=== PATIENT | male | born 1930 | race Caucasian/White ===

== ENCOUNTER 2017-10-25 06:51 | Emergency (ER) | payer MEDICARE ==
[~2017-10-25] VITALS: Ht 167.6 cm; Wt 72.1 kg
[~2017-10-25 06:51] MED LIST: ASPIRIN LOW DOS81 MG PO; CALCIUM500 M3 PO; CLINDAMYCIN HC150 MG; COQ-10100 MG PO; PANTOPRAZOLE SO40 MG PO; VITAMIN C100 MG PO; VITAMIN D31000 UNI1 PO; VITAMIN E200 UNI5 PO; Z GARLIC PO; Z.0.COQ-10100 MG PO; Z.0.DIOVAN160 MG PO; Z.0.SYNTHROID75 MCG PO; [UNRECOGNIZED DRUG - OTHER]; [UNRECOGNIZED DRUG - OTHER]; [UNRECOGNIZED DRUG - OTHER] PO; [UNRECOGNIZED DRUG - OTHER] PO; [UNRECOGNIZED DRUG - OTHER] PO; [UNRECOGNIZED DRUG - OTHER] PO
[2017-10-25] MEDS ORDERED: ARTIFICIAL TEAR15 ML OP (07:49)
== END 2017-10-25 08:23 | disposition home or self-care (01) ==
LOC: FSED 06:51
DX: T15.92XA Foreign body on external eye, part unspecified, left eye, initial encounter (principal); S05.8X2A Other injuries of left eye and orbit, initial encounter; I10 Essential (primary) hypertension; I25.10 Atherosclerotic heart disease of native coronary artery without angina pectoris; E03.9 Hypothyroidism, unspecified
CPT/HCPCS: 99283

== ENCOUNTER 2017-12-24 09:21 | Emergency (ER) | payer MEDICARE ==
[~2017-12-24] VITALS: Ht 167.6 cm; Wt 68.0 kg
[~2017-12-24 09:21] MED LIST changes: +ARTIFICIAL TEAR15 ML OP
--- OUTSIDE RECORDS SUMMARY | 2017-12-24 09:25 | XMS REPORT | Continuity of Care Document ---
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 Yes 04/17/16 12:16pm If yes, is advance directive on file with [facility]? No 11/30/15 12:51pm If not on file with [facility] will patient provide a copy? Yes 04/17/16 12:16pm Do you have a Directive to Physician? No 10/25/17 7:19am Do you have a Medical Power of Certified Ophthalmic Surgical Assistant? Yes 10/25/17 7:19am Do you have an out of hospital Do Not Resuscitate Order? No 10/25/17 7:19am Do you have any special needs we should be aware of? No 10/25/17 7:19am Do you have a support person here with you today? Yes 10/25/17 7:19am Did patient receive Notice of Privacy Practices? Yes 10/25/17 7:19am Did patient receive patient rights and responsibilities? Yes 10/25/17 7:19am Problems Medical Problem Onset Date Status Chest pain 11/30/2015 Acute Medications Current Home Medications Medication Dose Units Route Directions Days Qty Instructions Start Date Ascorbic Acid (Vitamin C) 100 Mg Tablet 100 Mg Oral Daily Ascorbic Acid/Bioflavonoids (Vit C-Bioflavonoids Tab Sa) 1 Each Tablet.sa 1 Each Oral Aspirin (Aspirin Low Dose) 81 Mg Tablet.dr 81 Mg Oral Daily Calcium Carbonate (Calcium) 500 Mg Tablet 250 Mg Oral Daily 0.5 Cholecalciferol (Vitamin D3) (Vitamin D3) 1,000 Unit Tablet 2,000 Intlu Oral Daily Clindamycin Hcl 150 Mg Capsule Dextran 70/Hypromellose (Artificial Tears Eye Drops) 15 Ml Drops 15 Ml Ophthalmic Every 4 Hours as needed for Dryness/Irritation 1 Bottle 01/06 Garlic 1 Each Capsule 1 Each Oral Glucosmine Daily Levothyroxine Sodium (Synthroid) 75 Mcg Tablet 75 Mcg Oral Daily Pantoprazole Sodium (Protonix) 40 Mg Tablet.dr 40 Mg Oral Daily Red Yeast Rice 600 Mg Tablet Daily Ubidecarenone (Coq-10) 100 Mg Capsule 100 Mg Oral Daily Valsartan (Diovan) 160 Mg Tablet 160 Mg Oral Daily Vit D3 & K/Berberine Hcl/Hops (Ostera Tablet) 1 Each Tablet 1 Each Oral Vitamin E (Dl,Tocopheryl Acet) (Vitamin E) 200 Unit Capsule 200 Intlu Oral Daily Past Home Medications Medication Directions Ordered Status Ubidecarenone (Coq-10) 100 Mg Capsule, 100 Mg Oral Discontinued Vit B12/Lm-Folate Ca/Vit B6/B2 (Cerefolin Tablet) 1 Each Tablet, 1 Each Oral Daily Discontinued Vitamin A 8,000 Unit Capsule, 8000 Unit Oral Daily Discontinued Social History Social History Problem Response Recorded Date/Time Onset Date Status Hx Psychiatric Problems No 11/30/2015 12:51pm Not Applicable Not Applicable Hx Eating Disorder No 11/30/2015 12:51pm Not Applicable Not Applicable Hx Substance Use Disorder No 11/30/2015 12:51pm Not Applicable Not Applicable Hx Depression No 11/30/2015 12:51pm Not Applicable Not Applicable Hx Alcohol Use No 11/30/2015 12:51pm Not Applicable Not Applicable Hx Substance Use Treatment No 11/30/2015 12:51pm Not Applicable Not Applicable Hx Physical Abuse No 11/30/2015 12:51pm Not Applicable Not Applicable Hospital Discharge Instructions No hospital discharge instruction information available. Plan of Care Discharge Date 10/25/17 8:23am Disposition HOME, SELF-CARE Condition at Discharge Stable Instructions/Education Provided Corneal Abrasion Foreign Body - Eye Forms Provided Work/School Excuse Prescriptions See Medication Section Referrals [facility] Functional Status No functional status information available. Allergies, Adverse Reactions, Alerts Allergen Type Severity Reaction Status Last Updated No Known Drug Allergies Allergy Unknown Active 08/28/09 Immunizations No immunization information available. Vital Signs Acute Vital Signs Vital Response Date/Time Height 5 ft 6 in 10/25/2017 6:57am Weight 159 lb 10/25/2017 6:57am Body Mass Index 25.7 kg/m^2 10/25/2017 6:57am Results No relevant diagnostic test, laboratory data and/or discharge summary information available. Procedures No procedure information available. Encounters Encounter Location Arrival/Admit Date Discharge/Depart Date Attending Provider Departed Emergency Room [facility] 10/25/17 6:51am 8:23am JAYE PERRY MD
[2017-12-24] MEDS ORDERED: B-12 INJECTION (09:47)
[2017-12-24 11:01] VITALS: BP 132/76
== END 2017-12-24 10:50 | disposition home or self-care (01) ==
LOC: FSED 09:21
DX: S05.01XA Injury of conjunctiva and corneal abrasion without foreign body, right eye, initial encounter (principal)
CPT/HCPCS: 99283

== ENCOUNTER 2018-11-20 08:07 | Emergency (ER) | payer BC, MEDICARE ==
[~2018-11-20] VITALS: Ht 157.5 cm; Wt 63.5 kg
[~2018-11-20 08:07] MED LIST changes: +B-12 INJECTION
[2018-11-20 08:47] VITALS: BP 121/80
== END 2018-11-20 09:08 | disposition home or self-care (01) ==
LOC: FSED 08:07
DX: Z03.89 Encounter for observation for other suspected diseases and conditions ruled out (principal); H92.02 Otalgia, left ear; S00.412A Abrasion of left ear, initial encounter
CPT/HCPCS: 99282

== ENCOUNTER 2019-12-27 16:57 | Emergency (ER) | payer MEDICARE ==
[~2019-12-27] VITALS: Ht 157.5 cm; Wt 63.5 kg
[2019-12-27] MEDS ORDERED: BACITRACIN ZINC 15 GM OINT TOP STA (17:20)
[2019-12-27] MEDS ORDERED: TETANUS/DIPHTHERIA TOX ADULT 0.5 ML SYR IM ONE (17:30)
[2019-12-27] MEDS ORDERED: TETANUS/DIPHTHERIA TOX ADULT 0.5 ML SYR ONE (17:48)
[2019-12-27] MEDS ORDERED: NEOMYCIN/POLYMYX/BACITR OINT 0.9 GM PKT ONE (17:48)
== END 2019-12-27 18:00 | disposition home or self-care (01) ==
LOC: FSED 16:57
DX: S50.812A Abrasion of left forearm, initial encounter (principal); W01.0XXA Fall on same level from slipping, tripping and stumbling without subsequent striking against object, initial encounter; Y92.008 Other place in unspecified non-institutional (private) residence as the place of occurrence of the external cause
CPT/HCPCS: 90471; 90714; 99283